=== PATIENT | male | born 1965 | race Caucasian/White ===

== ENCOUNTER 2018-01-10 01:25 | Inpatient (IN) | payer OTHER ==
[2018-01-10] MEDS: ALBUTEROL 0.5% (NEB) 2.5 MG/0.5 ML AMP INH ×2 (02:00→05:20)
[2018-01-10] MEDS: IPRATROPIUM (NEB) 0.5 MG/2.5 ML AMP INH (02:01)
[2018-01-10 02:15] LABS: MODE ROOM AIR; MetHgb Venous 0.2 %; Sample Type Blood venous; Site VENOUS LINE; Venous COHb 2.8 %; Venous Fraction OxyHgb 80.6 %; Venous Oxygen Sat 83.1 mmHG (55.0-75.0); Venous Total Hemglobin 15.8 g/dl
[2018-01-10] MEDS: SOD CHLORIDE 0.9% 2,950 ML IV (02:19)
[2018-01-10] MEDS: LEVOFLOXACIN 750MG/D5W (PMX) 150 ML IVPB (02:20)
[2018-01-10] MEDS: DEXAMETHASONE 10 MG/ML 1 ML INJ IV (02:20)
[2018-01-10 02:23] LABS: ADD MAN DIFF? NO
[2018-01-10 02:24] LABS: WHITE BLOOD COUNT 11.2 10^3/ul (4.8-10.8)
[2018-01-10 02:24] LABS: BASOPHILS % 0.4 % (0.0-2.0); EOSINOPHILS # 0.2 10^3/ul (0.0-0.5); HEMOGLOBIN 14.7 g/dl (14.0-18.0); LYMPHOCYTES # 1.2 10^3/ul (0.8-2.9); LYMPHOCYTES % 10.8 % (15.0-51.0); MEAN CORPUSCULAR HEMOGLOBIN 30.8 pg (29.0-33.0); MEAN CORPUSCULAR HGB CONC 33.4 g/dl (32.0-37.0); MEAN CORPUSCULAR VOLUME 92.2 fl (82.0-101.0); MEAN PLATELET VOLUME 8.9 fl (7.4-10.4); MONOCYTE # 0.9 10^3/ul (0.3-0.9); MONOCYTES % 8.1 % (0.0-11.0); NEUTROPHIL # 8.8 10^3/ul (1.6-7.5); NEUTROPHILS % 78.3 % (39.0-77.0); PLATELET COUNT 303 10^3/UL (140-415); RED BLOOD COUNT 4.77 10^6/ul (4.70-6.10); RED CELL DISTRIBUTION WIDTH 12.4 % (11.5-14.5)
[2018-01-10 02:42] LABS: LACTIC ACID 0.8 mmol/L (0.5-2.0)
[2018-01-10 02:43] LABS: ANION GAP 15 (8-16); BLOOD UREA NITROGEN 11 mg/dl (7-20); CALCIUM 8.6 mg/dl (8.4-10.2); CARBON DIOXIDE 28 mmol/L (21-31); CHLORIDE 106 mmol/L (97-110); CREATININE 0.91 mg/dl (0.61-1.24); GLUCOSE 130 mg/dl (70-220); POTASSIUM 3.9 mmol/L (3.5-5.1); SODIUM 145 mmol/L (135-144)
[2018-01-10] MEDS ORDERED: ACETAMINOPHEN 325 MG TAB PO (05:30)
[2018-01-10] MEDS ORDERED: NACL 0.9% 3 ML SYG IV (05:30)
[2018-01-10 06:18] LABS: LACTIC ACID 1.3 mmol/L (0.5-2.0)
[2018-01-10] MEDS: PANTOPRAZOLE (EC) 40 MG TAB PO (06:56)
[2018-01-10] MEDS: METHYLPREDNISOLONE 40 MG INJ IV ×2 (06:57→20:48)
[2018-01-10] MEDS: ALBUTEROL/IPRATROPIUM (NEB) 3 ML AMP HHN ×3 (08:13→16:19)
[2018-01-10 08:15] LABS: LACTIC ACID 1.3 mmol/L (0.5-2.0)
[2018-01-10] MEDS ORDERED: ALBUTEROL 0.083% (NEB) 2.5 MG/3 ML AMP HHN (09:00)
[2018-01-10] MEDS: ASPIRIN (EC) 81 MG TAB PO (09:11)
[2018-01-10] MEDS: LISINOPRIL 20 MG TAB PO (09:37)
[2018-01-10 10:41] LABS: THYROID STIMULATING HORMONE 0.474 MIU/L (0.465-4.680)
[2018-01-10] MEDS: ATORVASTATIN 10 MG TAB PO (20:48)
[2018-01-11] MEDS: ALBUTEROL/IPRATROPIUM (NEB) 3 ML AMP HHN ×4 (01:24→13:41)
[2018-01-11] MEDS: PANTOPRAZOLE (EC) 40 MG TAB PO (05:26)
[2018-01-11] MEDS: LEVOFLOXACIN 750MG/D5W (PMX) 150 ML IVPB (05:26)
[2018-01-11] MEDS: LEVOTHYROXINE 150 MCG TAB PO (07:14)
[2018-01-11] MEDS: LISINOPRIL 20 MG TAB PO (08:47)
[2018-01-11] MEDS: ASPIRIN (EC) 81 MG TAB PO (08:47)
[2018-01-11] MEDS: METHYLPREDNISOLONE 40 MG INJ IV (08:48)
[2018-01-11 10:03] LABS: ADD MAN DIFF? NO
[2018-01-11 10:10] LABS: BASOPHILS % 0.1 % (0.0-2.0); HEMATOCRIT 40.7 % (42.0-52.0); HEMOGLOBIN 13.3 g/dl (14.0-18.0); LYMPHOCYTES # 1.1 10^3/ul (0.8-2.9); LYMPHOCYTES % 8.1 % (15.0-51.0); MEAN CORPUSCULAR HEMOGLOBIN 30.7 pg (29.0-33.0); MEAN CORPUSCULAR HGB CONC 32.7 g/dl (32.0-37.0); MEAN PLATELET VOLUME 9.2 fl (7.4-10.4); MONOCYTE # 0.7 10^3/ul (0.3-0.9); MONOCYTES % 5.2 % (0.0-11.0); NEUTROPHIL # 11.3 10^3/ul (1.6-7.5); NEUTROPHILS % 85.8 % (39.0-77.0); PLATELET COUNT 329 10^3/UL (140-415); RED BLOOD COUNT 4.33 10^6/ul (4.70-6.10); RED CELL DISTRIBUTION WIDTH 12.5 % (11.5-14.5)
[2018-01-11 10:10] LABS: WHITE BLOOD COUNT 13.1 10^3/ul (4.8-10.8)
[2018-01-11 10:29] LABS: ALANINE AMINOTRANSFERASE 18 IU/L (13-69); ALBUMIN 3.5 g/dl (3.3-4.9); ALKALINE PHOSPHATASE 75 IU/L (42-121); ANION GAP 14 (8-16); ASPARTATE AMINO TRANSFERASE 19 IU/L (15-46); BILIRUBIN,INDIRECT 0.1 mg/dl (0-1.1); BILIRUBIN,TOTAL 0.1 mg/dl (0.2-1.3); BLOOD UREA NITROGEN 16 mg/dl (7-20); CALCIUM 8.7 mg/dl (8.4-10.2); CARBON DIOXIDE 29 mmol/L (21-31); CHLORIDE 106 mmol/L (97-110); CREATININE 0.87 mg/dl (0.61-1.24); GLUCOSE 167 mg/dl (70-220); MAGNESIUM 2.2 mg/dl (1.7-2.5); POTASSIUM 4.2 mmol/L (3.5-5.1); SODIUM 145 mmol/L (135-144); TOTAL PROTEIN 6.4 g/dl (6.1-8.1)
[2018-01-11 10:31] LABS: PHOSPHORUS 2.7 mg/dl (2.5-4.9)
[2018-01-11 10:31] LABS: CHOL/HDL RATIO 2.8 RATIO; CHOLESTEROL 113 mg/dl (100-200); HDL CHOLESTEROL 39 mg/dl (28-71); LDL CHOLESTEROL,CALCULATED 54 mg/dl; TRIGLYCERIDES 100 mg/dl (0-149)
[2018-01-11 12:50] LABS: HEMOGLOBIN A1C 5.7 % (0-5.9)
== END 2018-01-11 14:18 | disposition home or self-care (01) | DRG 192 ==
LOC: E/R 01:25 → MS4 05:19
DX: J44.1 Chronic obstructive pulmonary disease with (acute) exacerbation (principal); J44.0 Chronic obstructive pulmonary disease with (acute) lower respiratory infection; F17.210 Nicotine dependence, cigarettes, uncomplicated; E03.9 Hypothyroidism, unspecified; I10 Essential (primary) hypertension; J20.9 Acute bronchitis, unspecified
CPT/HCPCS: 36415; 71045; 71250; 80048; 80053; 80061; 82803; 83036; 83605; 83735; 84100; 84443; 85025; 87040; 93005; 94640; 94644; 94645; 94664; 96365; 96366; 96375; 99285-25

== ENCOUNTER 2018-03-31 00:31 | Emergency (ER) | payer OTHER ==
[2018-03-31] MEDS: HYDROCODONE/APAP (5/325) TAB PO (01:44)
[2018-03-31] MEDS: IBUPROFEN 800 MG TAB PO (01:44)
[2018-03-31 02:38] LABS: TROPONIN-I < 0.010 ng/ml (0.000-0.120)
== END 2018-03-31 04:12 | disposition home or self-care (01) ==
LOC: E/R 00:31
DX: R07.89 Other chest pain (principal); I10 Essential (primary) hypertension; J44.9 Chronic obstructive pulmonary disease, unspecified; E03.9 Hypothyroidism, unspecified; F17.210 Nicotine dependence, cigarettes, uncomplicated; Z79.82 Long term (current) use of aspirin
CPT/HCPCS: 36415; 71045; 84484; 93005; 99285-25

== ENCOUNTER 2018-04-06 09:35 | Emergency (ER) | payer OTHER | END 2018-04-06 12:30 | disposition home or self-care (01) | LOC: FTE 09:35 | DX: S20.212A Contusion of left front wall of thorax, initial encounter (principal); I10 Essential (primary) hypertension; J44.9 Chronic obstructive pulmonary disease, unspecified; E03.9 Hypothyroidism, unspecified; V00.141A Fall from scooter (nonmotorized), initial encounter; Y92.9 Unspecified place or not applicable; Z79.82 Long term (current) use of aspirin; Z87.891 Personal history of nicotine dependence | CPT/HCPCS: 71100; 99283-25 ==

== ENCOUNTER 2018-07-03 11:08 | Emergency (ER) | payer OTHER ==
[2018-07-03 12:50] LABS: ADD MAN DIFF? NO
[2018-07-03 12:54] LABS: WHITE BLOOD COUNT 9.6 10^3/ul (4.8-10.8)
[2018-07-03 12:54] LABS: BASOPHIL # 0.1 10^3/ul (0.0-0.1); BASOPHILS % 0.5 % (0.0-2.0); EOSINOPHILS # 0.3 10^3/ul (0.0-0.5); HEMOGLOBIN 14.6 g/dl (14.0-18.0); LYMPHOCYTES # 1.7 10^3/ul (0.8-2.9); LYMPHOCYTES % 17.5 % (15.0-51.0); MEAN CORPUSCULAR HGB CONC 33.2 g/dl (32.0-37.0); MEAN CORPUSCULAR VOLUME 93.4 fl (82.0-101.0); MEAN PLATELET VOLUME 8.5 fl (7.4-10.4); MONOCYTE # 0.6 10^3/ul (0.3-0.9); MONOCYTES % 6.2 % (0.0-11.0); NEUTROPHILS % 72.5 % (39.0-77.0); PLATELET COUNT 418 10^3/UL (140-415); RED BLOOD COUNT 4.71 10^6/ul (4.70-6.10); RED CELL DISTRIBUTION WIDTH 12.6 % (11.5-14.5)
[2018-07-03 13:21] LABS: ANION GAP 6 (5-13); BLOOD UREA NITROGEN 18 mg/dl (7-20); CALCIUM 9.1 mg/dl (8.4-10.2); CARBON DIOXIDE 27 mmol/L (21-31); CHLORIDE 107 mmol/L (97-110); Estimated GFR > 60 mL/min (>60); GLUCOSE 95 mg/dl (70-220); POTASSIUM 4.2 mmol/L (3.5-5.1); SODIUM 140 mmol/L (135-144)
[2018-07-03 13:35] LABS: TROPONIN-I < 0.012 ng/ml (0.000-0.120)
[2018-07-03] MEDS: IBUPROFEN 600 MG TAB PO (14:16)
== END 2018-07-03 14:25 | disposition home or self-care (01) ==
LOC: E/R 11:08
DX: R07.89 Other chest pain (principal); I10 Essential (primary) hypertension; J44.9 Chronic obstructive pulmonary disease, unspecified; Z79.82 Long term (current) use of aspirin; Z87.891 Personal history of nicotine dependence
CPT/HCPCS: 71045; 80048; 84484; 85025; 93005; 99285-25

== ENCOUNTER 2018-10-18 14:12 | Emergency (ER) | payer OTHER ==
[2018-10-18] MEDS ORDERED: METHYLPREDNISOLONE 40 MG INJ IV (15:19)
[2018-10-18] MEDS: METHYLPREDNISOLONE 40 MG INJ IM (15:47)
[2018-10-18] MEDS: LEVALBUTEROL (NEB) 1.25 MG/0.5 ML AMP INH (15:54)
[2018-10-18] MEDS: IPRATROPIUM (NEB) 0.5 MG/2.5 ML AMP NEB ×2 (15:54→17:21)
[2018-10-18 16:03] LABS: ADD MAN DIFF? NO
[2018-10-18 16:08] LABS: BASOPHIL # 0.1 10^3/ul (0.0-0.1); BASOPHILS % 0.5 % (0.0-2.0); EOSINOPHILS # 0.3 10^3/ul (0.0-0.5); EOSINOPHILS % 2.5 % (0.0-7.0); HEMATOCRIT 47.6 % (42.0-52.0); HEMOGLOBIN 15.8 g/dl (14.0-18.0); LYMPHOCYTES # 1.7 10^3/ul (0.8-2.9); LYMPHOCYTES % 15.2 % (15.0-51.0); MEAN CORPUSCULAR HEMOGLOBIN 31.2 pg (29.0-33.0); MEAN CORPUSCULAR HGB CONC 33.2 g/dl (32.0-37.0); MEAN CORPUSCULAR VOLUME 93.9 fl (82.0-101.0); MEAN PLATELET VOLUME 8.8 fl (7.4-10.4); MONOCYTE # 1.2 10^3/ul (0.3-0.9); MONOCYTES % 10.8 % (0.0-11.0); NEUTROPHIL # 7.8 10^3/ul (1.6-7.5); NEUTROPHILS % 70.6 % (39.0-77.0); PLATELET COUNT 367 10^3/UL (140-415); RED BLOOD COUNT 5.07 10^6/ul (4.70-6.10); RED CELL DISTRIBUTION WIDTH 12.6 % (11.5-14.5)
[2018-10-18] MEDS: LEVALBUTEROL (NEB) 0.63 MG/3 ML AMP INH (17:21)
== END 2018-10-18 19:46 | disposition home or self-care (01) ==
LOC: FTE 14:12
DX: J44.1 Chronic obstructive pulmonary disease with (acute) exacerbation (principal); F17.210 Nicotine dependence, cigarettes, uncomplicated; I10 Essential (primary) hypertension; E03.9 Hypothyroidism, unspecified; Z79.82 Long term (current) use of aspirin
CPT/HCPCS: 71045; 85025; 93005; 94640; 94664; 96372; 99285-25